=== PATIENT | male | born 1990 | race African-American/Black ===

== ENCOUNTER 2021-03-23 14:18 | Emergency (ER) | payer SELFPAY ==
[2021-03-23 14:46] VITALS: BP 94/62
[2021-03-23] MEDS ORDERED: HYDR-3686 PO (15:22)
[2021-03-23] MEDS ORDERED: BETA15CR4 TOP (15:22)
[2021-03-23] MEDS ORDERED: SULF1TAB49 PO (15:22)
[2021-03-23] MEDS ORDERED: PRED20TA PO (15:22)
--- NOTE | 2021-03-23 15:38 | NUR ---
seen, assessed and discharged by provider.
== END 2021-03-23 15:39 | disposition home or self-care (01) ==
LOC: ER 14:19
DX: L23.9 Allergic contact dermatitis, unspecified cause (principal); Z79.899 Other long term (current) drug therapy
CPT/HCPCS: 99283